=== PATIENT | male | born 1945 | race Caucasian/White ===

== ENCOUNTER 2021-01-31 01:24 | Observation (INO) | payer MEDICARE, OTHER ==
[~2021-01-31] VITALS: Ht 175.3 cm; Wt 89.5 kg
[2021-01-31] MEDS ORDERED: LIPITOR40 MG PO (01:36)
[2021-01-31] MEDS ORDERED: TRICOR145 MG PO (01:36)
[2021-01-31] MEDS ORDERED: TRAZODONE HCL100 MG PO (01:36)
[2021-01-31] MEDS ORDERED: GLIPIZIDE10 MG PO (01:36)
[2021-01-31] MEDS ORDERED: TOPROL XL25 MG PO ×2 (01:36→09:54)
[2021-01-31] MEDS ORDERED: SYNTHROID175 MCG PO (01:37)
[2021-01-31] MEDS ORDERED: PRINIVIL20 MG PO (01:37)
[2021-01-31] MEDS ORDERED: BAYER CHEWABLE81 MG PO (01:38)
[2021-01-31] MEDS ORDERED: LEVEMIR FL100 UNIT/1 SC (01:38)
[2021-01-31 01:57] LABS: BASOPHILS 0.6 % (0-2); EOSINOPHILS 2.6 % (0-7); HEMATOCRIT 39.2 % (42.0-54.0); LYMPHOCYTES 45.3 % (15-50); MCH 28.4 pg (26.0-34.0); MCHC 33.2 g/dL (31.0-37.0); MCV 85.6 fL (80.0-100.0); MONOCYTES 7.2 % (2-11); NEUTROPHILS 44.3 % (40-80); PLATELET COUNT 164 10x3/uL (130-400); RBC 4.58 10x6/uL (4.20-6.10); RDW 13.7 % (11.5-14.5); WBC 7.4 10x3/uL (4.8-10.8)
[2021-01-31 02:13] LABS: CALC OSMOLALITY 292 mosm/kg (275-300); CALCIUM 8.6 mg/dL (8.5-10.1); CHLORIDE - SERUM 107 mmol/L (98-107); CREATININE - SERUM 1.5 mg/dL (0.6-1.3); GLUCOSE 198 mg/dL (74-106); POTASSIUM - SERUM 3.8 mmol/L (3.5-5.1); SODIUM 141 mmol/L (136-145); UREA NITROGEN 30 mg/dL (7-18); eGFR NON AFRICAN AMERICAN 49 mL/min (90-120)
[2021-01-31 02:27] LABS: ALBUMIN 3.7 g/dL (3.4-5.0); ALKALINE PHOSPHATASE 43 U/L (30-120); ALT (SGPT) 20 U/L (10-68); BILIRUBIN - TOTAL 0.32 mg/dL (0.2-1.3); C-REACTIVE PROTEIN < 0.2 mg/dL (0.0-0.9); MAGNESIUM - SERUM 2.1 mg/dL (1.8-2.4); PRO BNP 201 pg/mL (0-125); PROTEIN - SERUM 7.5 g/dL (6.4-8.2); THYROID STIMULATING HORMONE 1.16 uIU/mL (0.36-3.74); TROPONIN-I 0.019 ng/mL (0.000-0.060)
[2021-01-31 02:31] VITALS: BP 126/54
[2021-01-31 03:30] VITALS: BP 127/53
--- NOTE | 2021-01-31 03:47 | NUR ---
PT ASKING WHEN PT WILL GO TO THE FLOOR, PT AND PT INFORMED THAT WE DO NOT HAVE ANY BEDS AVAILABLE ON FLOOR AT THIS TIME, PT MAY GET ONE IN AM. VERBALIZES UNDERSTANDING. DENIES FURTHER NEEDS.
--- NOTE | 2021-01-31 04:05 | NUR ---
PT GIVEN BLANKET, DENIES FURTHER NEEDS. CALL LIGHT IN REACH.
[2021-01-31 04:30] VITALS: BP 117/52
[2021-01-31 06:29] VITALS: BP 104/59
--- NOTE | 2021-01-31 08:15 | NUR ---
[facility] AWARE OF CONSULT.
[2021-01-31 08:41] VITALS: Ht 175.3 cm; Wt 89.5 kg
[2021-01-31 10:59] VITALS: BP 119/60
== END 2021-01-31 10:59 | disposition home or self-care (01) ==
LOC: D.ER 01:24 → D.EDHOLD 02:08 → OBSVTIME 02:08 → D.EDHOLD 10:59
PROVIDERS: Family Medicine; ADMIT Family Medicine; ATTEND Family Medicine
DX: R00.2 Palpitations (principal); I25.10 Atherosclerotic heart disease of native coronary artery without angina pectoris; E11.9 Type 2 diabetes mellitus without complications; I10 Essential (primary) hypertension; Z79.84 Long term (current) use of oral hypoglycemic drugs; Z79.82 Long term (current) use of aspirin